=== PATIENT | male | born 1965 | race Caucasian/White ===

== ENCOUNTER 2019-12-04 08:40 | Observation (INO) | payer MEDICAID ==
[2019-12-04 09:14] LABS: ABSOLUTE BASOPHILS # (AUTO) 0.1 10^3/uL (0.0-0.2); ABSOLUTE EOSINOPHILS # (AUTO) 0.3 10^3/uL (0.0-0.6); ABSOLUTE LYMPHOCYTES (AUTO) 4.3 10^3/uL (0.5-4.7); ABSOLUTE MONOCYTES (AUTO) 1.3 10^3/uL (0.1-1.4); BASOPHILS % (AUTO) 0.5 % (0-2); EOSINOPHILS % (AUTO) 1.7 % (0-6); HEMATOCRIT 50.3 % (37.9-51.0); HEMOGLOBIN 16.9 g/dL (13.5-17.0); LYMPHOCYTES % (AUTO) 23.8 % (13-45); MEAN CORPUSCULAR HEMOGLOBIN 29.1 pg (27.0-33.4); MEAN CORPUSCULAR HGB CONC 33.7 g/dL (32.0-36.0); MEAN CORPUSCULAR VOLUME 86 fl (80-97); PLATELET COUNT 493 10^3/uL (150-450); RED BLOOD COUNT 5.82 10^6/uL (4.35-5.55); RED CELL DISTRIBUTION WIDTH 14.6 % (11.5-14.0); TOTAL CELLS COUNTED % (AUTO) 100 %; WHITE BLOOD COUNT 17.9 10^3/uL (4.0-10.5)
[2019-12-04 09:24] LABS: ALBUMIN 3.5 g/dL (3.5-5.0); ALKALINE PHOSPHATASE 110 U/L (38-126); ASPARTATE AMINO TRANSFERASE 28 U/L (17-59); BILIRUBIN,TOTAL 0.5 mg/dL (0.2-1.3); BLOOD UREA NITROGEN 10 mg/dL (7-20); CALCIUM 8.9 mg/dL (8.4-10.2); CARBON DIOXIDE 25 mmol/L (22-30); CHLORIDE 107 mmol/L (98-107); GLUCOSE 139 mg/dL (75-110); TOTAL PROTEIN 6.2 g/dL (6.3-8.2)
[2019-12-04 09:28] LABS: CREATINE KINASE 100 U/L (55-170); POTASSIUM 4.5 mmol/L (3.6-5.0)
[2019-12-04 09:33] LABS: ANION GAP 5 (5-19)
[2019-12-04 09:35] LABS: CREATINE KINASE MB 2.52 ng/mL (<4.55)
[2019-12-04] MEDS ORDERED: ASPIRIN 81 MG TABLET, CHEWABLE PO ONE (09:36)
[2019-12-04] MEDS ORDERED: NORMAL SALINE 1000 ML 1,000 ML IV ONE (09:37)
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
[2019-12-04 09:43] LABS: TROPONIN I < 0.012 ng/mL
[2019-12-04] MEDS ORDERED: NITROGLYCERIN 0.4 MG/TAB 25 TAB/BOTTLE SL PRN ×2 (09:50→11:41)
--- NOTE | 2019-12-04 09:56 | RADIOLOGY REPORT (SQ) ---
EXAM DESCRIPTION: CHEST 2 VIEWS IMAGES COMPLETED DATE/TIME: 12/04/2019 9:44 am REASON FOR STUDY: cp COMPARISON: None. EXAM PARAMETERS: NUMBER OF VIEWS: two views TECHNIQUE: Digital Frontal and Lateral radiographic views of the chest acquired. RADIATION DOSE: NA LIMITATIONS: none FINDINGS: LUNGS AND PLEURA: No opacities, masses or pneumothorax. No pleural effusion. MEDIASTINUM AND HILAR STRUCTURES: No masses or contour abnormalities. HEART AND VASCULAR STRUCTURES: Heart normal size. No evidence for failure. BONES: No acute findings. HARDWARE: None in the chest. OTHER: No other significant finding. IMPRESSION: NO ACUTE RADIOGRAPHIC FINDING IN THE CHEST. TECHNICAL DOCUMENTATION: JOB ID: [id number] 2010 [employer]- All Rights Reserved Reading location - IP/workstation name: [email or web address]
--- NOTE | 2019-12-04 09:58 | RADIOLOGY REPORT (SQ) ---
EXAM DESCRIPTION: FOOT LEFT COMPLETE IMAGES COMPLETED DATE/TIME: 12/04/2019 9:45 am REASON FOR STUDY: foot injury, L 1 MT, toe pain COMPARISON: None. NUMBER OF VIEWS: Three views. TECHNIQUE: AP, lateral and oblique radiographic images acquired of the left foot. LIMITATIONS: None. FINDINGS: MINERALIZATION: Normal. BONES: Acute mildly comminuted fracture, mid 3rd and distal tuft left great toe distal phalanx just d eep to the toenail. JOINTS: Mild joint space narrowing and bony spurring at the 1st metatarsophalangeal joint. SOFT TISSUES: Great toe soft tissue swelling. No foreign body. OTHER: No other significant finding. IMPRESSION: Acute fracture distal phalanx left great toe TECHNICAL DOCUMENTATION: JOB ID: [id number] 2010 [employer]- All Rights Reserved Reading location - IP/workstation name: [email or web address]
[2019-12-04] MEDS ORDERED: NITROGLYCERIN 2% OINTMENT 1 GM PACKET TP ONE (10:04)
[2019-12-04] MEDS ORDERED: HYDROCODONE/ACETAMINOPHEN 5-325 MG TABLET PO ONE (10:12)
[2019-12-04] MEDS ORDERED: ACETAMINOPHEN 325 MG TABLET PO PRN (11:16)
[2019-12-04] MEDS ORDERED: MAG HYDROX/AL HYDROX/SIMETH SUSP 30 ML UDCUP PO PRN (11:16)
[2019-12-04] MEDS ORDERED: IPRATROPIUM/ALBUTEROL 0.5-2.5 MG/3 ML AMPUL NEB PRN (11:16)
[2019-12-04] MEDS ORDERED: ONDANSETRON HCL INJ/PF 4 MG/2 ML SDV IV PRN (11:16)
[2019-12-04] MEDS ORDERED: HYDRALAZINE HCL INJ/PF 20 MG/1 ML SDV IV PRN (11:22)
[2019-12-04] MEDS ORDERED: NICOTINE 21 MG/24 HR PATCH.TD24 TD ONE (11:23)
[2019-12-04] MEDS ORDERED: PANTOPRAZOLE SODIUM 40 MG VIAL IV SCH (11:30)
[2019-12-04] MEDS ORDERED: LORAZEPAM INJ 2 MG/1 ML VIAL IV PRN (11:32)
--- NOTE | 2019-12-04 11:45 | PDOC H&P ---
History of Present Illness Admission Date/PCP: ELLY BANKS NP Patient complains of: chest pain History of Present Illness: NIKKI KELLY is a 54 year old male with a past medical history of hypertension, tobacco and alcohol dependence with continuous use, and peptic ulcer disease with prior exploratory laparotomy related to perforated ulcer disease (2 years ago at [facility]) who presented to the emergency department with a complaint of chest pain this morning associated with diaphoresis and generalized weakness. He has had multiple similar episodes in the recent past. He has not yet been evaluated by a provider. On arrival, he is noted to have hypertensive urgency with blood pressure 160/101. Noted to have leukocytosis (WBC 17.9), chemistry is normal, troponin normal, lipase normal. EKG shows normal sinus rhythm with right bundle branch block. Chest x-ray is benign. He is provided Nitropaste, which relieved his discomfort, and is referred to the hospitalist service for additional evaluation management. Past Medical History Cardiac Medical History: Reports: Hypertension Pulmonary Medical History: Reports: None EENT Medical History: Reports: None Neurological Medical History: Reports: None Endocrine Medical History: Reports: None Renal/ Medical History: Reports: None Malignancy Medical History: Reports: None GI Medical History: Reports: Gastroesophageal Reflux Disease, Peptic Ulcer Disease Musculoskeltal Medical History: Reports: None Psychiatric Medical History: Reports: Alcohol Dependency, Tobacco Dependency Traumatic Medical History: Reports: None Hematology: Reports: None Past Surgical History Past Surgical History: Reports: Other - Exploratory laparotomy r/t perforated gastric ulcer Social History Information Source: Patient Lives with: Friend Smoking Status: Current Every Day Smoker Cigarettes Packs Per Day: 1 Electronic Cigarette use?: Yes Frequency of Alcohol Use: Heavy Amount of Alcoholic Beverages Per Day: 6 beers Hx Recreational Drug Use: Yes Drugs: Marijuana Hx Prescription Drug Abuse: No - Advance Directive Resuscitation Status: Full Code Family History Family History: Reviewed & Not Pertinent Parental Family History Reviewed: Yes Children Family History Reviewed: Yes Sibling(s) Family History Reviewed.: Yes Medication/Allergy Allergies/Adverse Reactions: No Known Allergies Allergy (Verified 12/04/19 09:20) Review of Systems Constitutional: ABSENT: chills, fever(s), headache(s), weight gain, weight loss Eyes: ABSENT: visual disturbances Ears: ABSENT: hearing changes Cardiovascular: PRESENT: chest pain. ABSENT: dyspnea on exertion, edema, orthropnea, palpitations Respiratory: ABSENT: cough, hemoptysis Gastrointestinal: PRESENT: abdominal pain, nausea, vomiting. ABSENT: constipation, diarrhea, hematemesis, hematochezia Genitourinary: ABSENT: dysuria, hematuria Musculoskeletal: ABSENT: joint swelling Integumentary: ABSENT: rash, wounds Neurological: ABSENT: abnormal gait, abnormal speech, confusion, dizziness, focal weakness, syncope Psychiatric: ABSENT: anxiety, depression, homidical ideation, suicidal ideation Endocrine: ABSENT: cold intolerance, heat intolerance, polydipsia, polyuria Hematologic/Lymphatic: ABSENT: easy bleeding, easy bruising Physical Exam Vital Signs: Temp Pulse Resp BP Pulse Ox 98.0 F 20 160/101 H 98 12/04/19 08:53 12/04/19 11:01 12/04/19 11:00 12/04/19 11:01 Intake & Output 12/03/19 12/04/19 12/05/19 06:59 06:59 06:59 Intake Total 1000 Balance 1000 Weight 68.4 kg General appearance: PRESENT: no acute distress, cooperative, well-developed, w ell-nourished Head exam: PRESENT: atraumatic, normocephalic Eye exam: PRESENT: conjunctiva pink, EOMI, PERRLA. ABSENT: scleral icterus Mouth exam: PRESENT: moist, tongue midline Teeth exam: PRESENT: poor dentation - Tobacco staining to teeth and fingers Respiratory exam: PRESENT: clear to auscultation manny, symmetrical, unlabored. ABSENT: rales, rhonchi, wheezes Cardiovascular exam: PRESENT: RRR, +S1, +S2. ABSENT: diastolic murmur, rubs, systolic murmur Pulses: PRESENT: normal dorsalis pedis pul Vascular exam: PRESENT: normal capillary refill GI/Abdominal exam: PRESENT: normal bowel sounds, soft, tenderness. ABSENT: distended, guarding, mass, organolmegaly, rebound Rectal exam: PRESENT: deferred Extremities exam: PRESENT: full ROM. ABSENT: calf tenderness, clubbing, pedal edema Musculoskeletal exam: PRESENT: ambulatory Neurological exam: PRESENT: alert, awake, oriented to person, oriented to place, oriented to time, oriented to situation, CN II-XII grossly intact. ABSENT: motor sensory deficit Psychiatric exam: PRESENT: appropriate affect, normal mood. ABSENT: homicidal ideation, suicidal ideation Skin exam: PRESENT: dry, intact, warm. ABSENT: cyanosis, rash Results Laboratory Results: 12/04/19 08:25 12/04/19 08:25 12/04/19 12/04/19 12/04/19 08:25 08:25 08:25 WBC 17.9 H RBC 5.82 H Hgb 16.9 Hct 50.3 MCV 86 MCH 29.1 MCHC 33.7 RDW 14.6 H Plt Count 493 H Seg Neutrophils % 67.0 Sodium 137.3 Potassium 4.5 Chloride 107 Carbon Dioxide 25 Anion Gap 5 BUN 10 Creatinine 0.85 Est GFR ( Amer) > 60 Glucose 139 H Calcium 8.9 Total Bilirubin 0.5 AST 28 Alkaline Phosphatase 110 Total Protein 6.2 L Albumin 3.5 Lipase 113.7 12/04/19 12/04/19 08:25 08:25 Creatine Kinase 100 CK-MB (CK-2) 2.52 Troponin I < 0.012 Impressions: Chest X-Ray 12/04/19 09:24 IMPRESSION: NO ACUTE RADIOGRAPHIC FINDING IN THE CHEST. Foot X-Ray 12/04/19 09:38 IMPRESSION: Acute fracture distal phalanx left great toe Assessment and Plan - Diagnosis (1) Chest pain Qualifiers: Chest pain type: unspecified Qualified Code(s): R07.9 - Chest pain, unspecified Is this a current diagnosis for this admission?: Yes Plan: Patient presents with atypical chest pain symptoms. He reports several times a month, for the last few months, noting substernal chest discomfort described as, "deep pressure," that radiates to both arms. He is not yet been seen for this; today's episode was associated with generalized weakness and diaphoresis which prompted him to seek evaluation. EKG shows sinus rhythm with right bundle branch block. No ST segment changes. Initial troponin is negative. Chest x-ray benign. He is admitted to the medical floor on continuous cardiac telemetry. He started on daily aspirin and statin therapy. SL Nitro for chest pain. Consider trial of GI cocktail. Full dose protonix. Obtain CT ABD w/ oral contrast. Continue to trend troponins. (2) HTN (hypertension) Is this a current diagnosis for this admission?: Yes Plan: Patient is placed on lisinopril and amlodipine. IV hydralazine as needed for blood pressure control. Cardiac diet. (3) Leukocytosis Is this a current diagnosis for this admission?: Yes Plan: Unclear etiology. No clear infectious process. Pending CT of the abdomen. Follow-up CBC. (4) Tobacco dependence Is this a current diagnosis for this admission?: Yes Plan: Smoking cessation is encouraged. Nicotine replacement therapy is provided. (5) Alcohol dependence Qualifiers: Substance use status: uncomplicated Qualified Code(s): F10.20 - Alcohol dependence, uncomplicated Is this a current diagnosis for this admission?: Yes Plan: Cessation is encouraged. Monitor for withdrawal. Scheduled Valium. As needed ativan. Thiamin and folic acid supplementation. Check magnesium. - Time Time Spent with patient: 35 or more minutes Smoking Cessation Education: 3 to 10 minutes Medications reviewed and adjusted accordingly: Yes Anticipated discharge: Home Within: within 24 hours
[2019-12-04] MEDS: LISINOPRIL 10 MG TABLET PO SCH (11:51)
[2019-12-04] MEDS: DIAZEPAM 5 MG TABLET PO SCH ×3 (12:05→23:56)
--- NOTE | 2019-12-04 12:53 | RADIOLOGY REPORT (SQ) ---
EXAM DESCRIPTION: CT ABD/PELVIS ORAL ONLY IMAGES COMPLETED DATE/TIME: 12/04/2019 12:26 pm REASON FOR STUDY: abdominal pain, hx perforated ulcer COMPARISON: None. TECHNIQUE: CT scan of the abdomen and pelvis performed without intravenous contrast. Patient drank oral contrast Images reviewed with lung, soft tissue, and bone windows. Reconstructed coronal and sagittal MPR imag es reviewed. All images stored on PACS. All CT scanners at this facility use dose modulation, iterative reconstruction, and/or weight based d osing when appropriate to reduce radiation dose to as low as reasonably achievable (ALARA). [facility]: Dose Right [facility]: CareDose [facility]: Dose Right [facility]: Teradose 4D [facility]: LegitTrader RADIATION DOSE: CT Rad equipment meets quality standard of care and radiation dose reduction techniq ues were employed. CTDIvol: 6.0 mGy. DLP: 322 mGy-cm.mGy. LIMITATIONS: None. FINDINGS: LOWER CHEST: No significant findings. No nodules or infiltrates. NON-CONTRASTED LIVER, SPLEEN, ADRENALS: Evaluation limited by lack of IV contrast. No identified sign ificant masses. PANCREAS: No masses. No peripancreatic inflammatory changes. GALLBLADDER: No identified stones by CT criteria. No inflammatory changes to suggest cholecystitis. RIGHT KIDNEY AND URETER: No suspicious masses. Assessment limited by lack of IV contrast. No signif icant calcifications. No hydronephrosis or hydroureter. LEFT KIDNEY AND URETER: No suspicious masses. Assessment limited by lack of IV contrast. 3 mm left lower pole intrarenal nonobstructive stone No hydronephrosis or hydroureter. AORTA AND RETROPERITONEUM: No aneurysm. No retroperitoneal masses or adenopathy. BOWEL AND PERITONEAL CAVITY: Patient drank oral contrast before scanning. Stomach and duodenum are distended. No extravasation of contrast from the stomach. There is thickening of the pylorus/duoden um region. Ulcer in this area could not be excluded. No bowel obstruction. No obvious masses or inflammatory changes. No free fluid. No free intraperito molly air. Colonic diverticulosis without CT signs of acute diverticulitis. APPENDIX: Normal. PELVIS, BLADDER, AND ABDOMINAL WALL:No abnormal masses. No free fluid. Bladder normal. Patient has a n old supraumbilical midline incision with ventral hernia containing fat. BONES: No significant findings. OTHER: No other significant finding. IMPRESSION: Stomach and duodenum are distended with oral contrast. No extravasation of contrast. T hickening in the pylorus -duodenum region, ulcer in this area could not be excluded. Old fat containing supraumbilical midline ventral hernia COMMENT: Quality ID # [id number]: Final reports with documentation of one or more dose reduction techniques (e.g., Automated exposure control, adjustment of the mA and/or kV according to patient size, use of iterative reconstruction technique) TECHNICAL DOCUMENTATION: JOB ID: [id number] 2010 [employer]- All Rights Reserved Reading location - IP/workstation name: [email or web address]
[2019-12-04] MEDS ORDERED: DEXTROSE 40% GEL 15 GM TUBE PO PRN ×2 (13:00)
[2019-12-04] MEDS ORDERED: GLUCAGON,HUMAN RECOMB 1 MG INJ SUBCUT PRN (13:00)
[2019-12-04] MEDS ORDERED: DEXTROSE 50%-WATER 25 GM/50 ML DISP.SYRIN IV PRN ×2 (13:00)
--- NOTE | 2019-12-04 17:22 | EKG REPORT ---
SEVERITY:- ABNORMAL ECG - SINUS RHYTHM RBBB AND LAFB : Confirmed by: Syeda Sharif MD 04-Dec-2019 17:22:14
--- NOTE | 2019-12-04 17:22 | EKG REPORT ---
SEVERITY:- ABNORMAL ECG - SINUS RHYTHM RBBB AND LAFB : Confirmed by: Syeda Sharif MD 04-Dec-2019 17:22:08
[2019-12-04] MEDS: HEPARIN SOD (PORCINE) 5,000 UNIT/ML 1 ML VIAL SUBCUT SCH ×2 (17:31→21:16)
[2019-12-04] MEDS: PANTOPRAZOLE SODIUM 40 MG TABLET.DR PO SCH (17:31)
[2019-12-04] MEDS ORDERED: ATORVASTATIN CALCIUM 40 MG TABLET PO SCH (22:00)
[2019-12-04] MEDS ORDERED: AMLODIPINE BESYLATE 10 MG TABLET PO SCH (22:00)
[2019-12-05] MEDS: PANTOPRAZOLE SODIUM 40 MG TABLET.DR PO SCH ×2 (05:37→17:04)
[2019-12-05] MEDS: DIAZEPAM 5 MG TABLET PO SCH ×3 (06:34→17:04)
[2019-12-05] MEDS: HEPARIN SOD (PORCINE) 5,000 UNIT/ML 1 ML VIAL SUBCUT SCH ×2 (06:34→14:08)
[2019-12-05 06:55] LABS: HEMATOCRIT 46.2 % (37.9-51.0); HEMOGLOBIN 15.4 g/dL (13.5-17.0); MEAN CORPUSCULAR HGB CONC 33.3 g/dL (32.0-36.0); MEAN CORPUSCULAR VOLUME 87 fl (80-97); PLATELET COUNT 383 10^3/uL (150-450); RED CELL DISTRIBUTION WIDTH 14.3 % (11.5-14.0); WHITE BLOOD COUNT 10.5 10^3/uL (4.0-10.5)
[2019-12-05 07:21] LABS: BLOOD UREA NITROGEN 13 mg/dL (7-20); CALCIUM 8.7 mg/dL (8.4-10.2); CHOLESTEROL 149.64 mg/dL (0-200); GLUCOSE 92 mg/dL (75-110); POTASSIUM 4.4 mmol/L (3.6-5.0); TRIGLYCERIDES 185 mg/dL (<150)
[2019-12-05 07:28] LABS: CARBON DIOXIDE 28 mmol/L (22-30); CHLORIDE 111 mmol/L (98-107)
[2019-12-05 07:32] LABS: DIRECT LDL 85 mg/dL (<100)
[2019-12-05 07:37] LABS: ANION GAP 0 (5-19)
[2019-12-05] MEDS: LISINOPRIL 10 MG TABLET PO SCH (09:36)
[2019-12-05] MEDS ORDERED: THIAMINE HCL 100 MG TABLET PO SCH (10:00)
[2019-12-05] MEDS ORDERED: DOCUSATE SODIUM 100 MG CAPSULE PO SCH (10:00)
[2019-12-05] MEDS ORDERED: NICOTINE 21 MG/24 HR PATCH.TD24 TD SCH (10:00)
[2019-12-05] MEDS ORDERED: ASPIRIN 81 MG TABLET, CHEWABLE PO SCH (10:00)
[2019-12-05] MEDS ORDERED: FOLIC ACID 1 MG TABLET PO SCH (10:00)
--- NOTE | 2019-12-05 14:00 | DRAGON STRESS TEST REPORT ---
Pharmacological nuclear stress test Date: December 05, 2019 Referring physician: Gladys Clark NP Performing physician: Mikie Tao MD Indication: Chest pain Clinical history 54-year-old male with medical history significant for poorly controlled systemic hypertension and nicotine dependence-cigarettes who presented with epigastric discomfort. His cardiac biomarkers were mildly abnormal. We decided to proceed with pharmacological nuclear stress test for further re-stratification. Procedure The patient presented to the stress lab. Initially rest images were obtained according to standard protocol after the injection of 10.59 millicurie technetium 99m sestamibi. Subsequently the patient underwent pharmacological stress utilizing 0.4 mg of regadenoson intravenously. The patient's EKG and vital signs were monitored throughout the procedure. Subsequently patient was injected with 30.1 millicuries of technetium 99m sestamibi. After a period of rest, stress images were obtained according to standard protocol. EKG showed sinus rhythm with right bundle branch block at 93 beats per minute. The patient's stress EKG did not show any evidence for myocardial ischemia. There were no arrhythmias observed. Raw as well as processed rest and stress images were reviewed. There was mild to moderate gut uptake which did not interfere with the study. There is a small size, mild to moderately intense, predominantly fixed defect with mild reversibility in the inferior wall. There is normal contractility post-rest. The calculated ejection fraction is 56 %. The TID ratio is 1.21 Conclusion The stress EKG is negative for myocardial ischemia There is evidence of diaphragmatic attenuation on the study. There is mild ischemia in the inferior wall suggestive of RCA/left circumflex disease. There is normal contractility post-stress. The gated left ventricular ejection fraction is 56 %. Given above findings, medical therapy for coronary artery disease is recommended with aspirin, statin and beta-pawel prompt follow-up with distribution agent in the office. MTDD
[2019-12-05] MEDS ORDERED: REGADENOSON INJ 0.4 MG/5 ML DISP.SYRIN IV ONE (14:28)
--- NOTE | 2019-12-05 14:28 | PDOC CONSULTATION ---
Consultation Consult Date: 12/05/19 Provider Consulted: DESI MCLAUGHLIN Consult reason:: Abnormal troponin History of Present Illness Admission Date/PCP: 12/04/19 12:23 ELLY BANKS NP Patient complains of: Epigastric discomfort History of Present Illness: NIKKI KELLY is a 54 year old male 54-year-old male with the following active problems 1. Systemic hypertension 2. Nicotine dependence 3. Alcohol dependence 4. Peptic ulcer disease Patient presented with hypertensive urgency with epigastric discomfort. He has right bundle branch block on EKG. He had relief of epigastric discomfort with Nitropaste. His cardiac biomarkers are mildly abnormal. No prior history of coronary artery disease He continues to smoke cigarettes and uses alcohol. Past Medical History Cardiac Medical History: Reports: Hypertension Pulmonary Medical History: Reports: None EENT Medical History: Reports: None Neurological Medical History: Reports: None Endocrine Medical History: Reports: None Renal/ Medical History: Reports: None Malignancy Medical History: Reports: None GI Medical History: Reports: Gastroesophageal Reflux Disease, Peptic Ulcer Disease Musculoskeltal Medical History: Reports: None Psychiatric Medical History: Reports: Alcohol Dependency, Tobacco Dependency Denies: Depression Traumatic Medical History: Reports: None Hematology: Reports: None Past Surgical History Past Surgical History: Reports: Other - Exploratory laparotomy r/t perforated gastric ulcer Social History Lives with: Friend Smoking Status: Current Every Day Smoker Cigarettes Packs Per Day: 1 Electronic Cigarette use?: No Number of Years Smokin Frequency of Alcohol Use: Heavy Hx Recreational Drug Use: Yes Drugs: Marijuana Hx Prescription Drug Abuse: No - Advance Directive Resuscitation Status: Full Code Family History Family History: Reviewed & Not Pertinent Parental Family History Reviewed: Yes - No familial illnesses reported to mi Children Family History Reviewed: NA Sibling(s) Family History Reviewed.: NA Medication/Allergy Home Medications: No Home Medications 12/04/19 Allergies/Adverse Reactions: No Known Allergies Allergy (Verified 12/04/19 09:20) Physical Exam Vital Signs: Temp Pulse Resp BP Pulse Ox 98.0 F 79 17 115/75 100 12/04/19 23:30 12/05/19 07:00 12/04/19 23:30 12/04/19 23:30 12/04/19 23:30 Intake & Output 12/04/19 12/05/19 12/06/19 06:59 06:59 06:59 Intake Total 1000 Balance 1000 Weight 68 kg General appearance: PRESENT: no acute distress, cooperative, well-developed, well-nourished Head exam: PRESENT: atraumatic, normocephalic Eye exam: PRESENT: conjunctiva pink, EOMI Mouth exam: PRESENT: moist Respiratory exam: PRESENT: decreased breath sounds, rales, symmetrical, unlabored Cardiovascular exam: PRESENT: RRR, +S1, +S2 GI/Abdominal exam: PRESENT: soft, other - Healed laparotomy scar Rectal exam: PRESENT: deferred Neurological exam: PRESENT: alert, awake, oriented to person, oriented to place, oriented to time, oriented to situation Psychiatric exam: PRESENT: appropriate affect Skin exam: PRESENT: dry, intact, normal color Results Laboratory Results: 12/05/19 06:28 12/05/19 06:28 12/04/19 12/04/19 12/05/19 08:25 08:25 06:28 WBC 10.5 RBC 5.30 Hgb 15.4 Hct 46.2 MCV 87 MCH 29.0 MCHC 33.3 RDW 14.3 H Plt Count 383 Sodium Potassium Chloride Carbon Dioxide Anion Gap BUN Creatinine Est GFR ( Amer) Glucose Calcium Magnesium 2.1 Triglycerides Cholesterol LDL Cholesterol Direct VLDL Cholesterol HDL Cholesterol Lipase 113.7 TSH 12/05/19 12/05/19 06:28 06:28 WBC RBC Hgb Hct MCV MCH MCHC RDW Plt Count Sodium 139.0 Potassium 4.4 Chloride 111 H Carbon Dioxide 28 Anion Gap 0 L BUN 13 Creatinine 0.77 Est GFR ( Amer) > 60 Glucose 92 Calcium 8.7 Magnesium Triglycerides 185 H Cholesterol 149.64 LDL Cholesterol Direct 85 VLDL Cholesterol 37.0 H HDL Cholesterol 52 Lipase TSH 1.63 12/04/19 12/04/19 12/04/19 08:25 08:25 08:25 Creatine Kinase 100 CK-MB (CK-2) 2.52 Troponin I < 0.012 Cancelled NT-Pro-B Natriuret Pep 12/04/19 12/04/19 12/04/19 08:25 11:55 17:13 Creatine Kinase CK-MB (CK-2) Troponin I 0.208 0.478 NT-Pro-B Natriuret Pep 27 12/04/19 12/05/19 23:25 06:28 Creatine Kinase CK-MB (CK-2) Troponin I 0.323 0.179 NT-Pro-B Natriuret Pep EKG Comments: Twelve-lead EKG 12/04/2019. Independently reviewed by me. Sinus rhythm, 89 bpm, right bundle branch block, left anterior fascicular block Chest x-ray 12/04/2019 No acute radiographic finding CT scan abdomen pelvis 04/05/2020 Stomach and duodenum distended with oral contrast. No aortic aneurysm Distal phalanx of left great toe is fractured on x-ray 12/04/2019 Hemoglobin 16.9 White count 17.9 Cardiac troponin 0.208 0.478 0.323 0.179 Impressions: Chest X-Ray 12/04/19 09:24 IMPRESSION: NO ACUTE RADIOGRAPHIC FINDING IN THE CHEST. Foot X-Ray 12/04/19 09:38 IMPRESSION: Acute fracture distal phalanx left great toe Abdomen/Pelvis CT 12/04/19 11:16 IMPRESSION: Stomach and duodenum are distended with oral contrast. No extravasation of contrast. Thickening in the pylorus -duodenum region, ulcer in this area could not be excluded. Old fat containing supraumbilical midline ventral hernia Assessment & Plan - Diagnosis (1) Alcohol dependence Qualifiers: Substance use status: uncomplicated Qualified Code(s): F10.20 - Alcohol dependence, uncomplicated Is this a current diagnosis for this admission?: Yes Plan: Needs counseling to stop (2) Chest pain Qualifiers: Chest pain type: unspecified Qualified Code(s): R07.9 - Chest pain, unspecified Is this a current diagnosis for this admission?: Yes Plan: Cardiac biomarkers-troponin mildly elevated without a clear trend EKG with sinus rhythm and right bundle branch block and left anterior fascicular block without ischemic changes Pharmacological nuclear stress test was pursued in the hospital. The results indicate predominantly diaphragmatic attenuation with perhaps mild ischemia in the inferior wall suggestive of RCA/left circumflex disease which is probably mild. Would recommend a trial of medical therapy consisting of aspirin statin and beta-blockers and suggest close follow-up in the office. Recommend nicotine cessation (3) HTN (hypertension) Is this a current diagnosis for this admission?: Yes (4) Tobacco dependence Is this a current diagnosis for this admission?: Yes Plan: Significant respiratory findings. I counseled the patient regarding cigarette smoking cessation This can adversely affect his cardiovascular and overall health Total time spent was approximately 3 minutes - Notes Notes: Pharmacological nuclear stress test shows predominantly diaphragmatic attenuation with perhaps mild ischemia in the inferior wall. Would recommend medical therapy with aspirin statin and beta-pawel Discontinue nicotine use immediately Prompt follow-up with outpatient cardiology
--- NOTE | 2019-12-05 16:17 | PDOC DISCHARGE SUMMARY ---
Impression - Admit/DC Date/PCP Admission Date/Primary Care Provider: 12/04/19 12:23 ELLY BANKS NP Discharge Date: 12/05/19 - Discharge Diagnosis (1) Chest pain Is this a current diagnosis for this admission?: Yes (2) HTN (hypertension) Is this a current diagnosis for this admission?: Yes (3) Leukocytosis Is this a current diagnosis for this admission?: Yes (4) Tobacco dependence Is this a current diagnosis for this admission?: Yes (5) Alcohol dependence Is this a current diagnosis for this admission?: Yes - Additional Information Resuscitation Status: Full Code Discharge Diet: Cardiac Discharge Activity: Activity As Tolerated, Balance Activity w/Rest Referrals: DESI TAO MD [ACTIVE STAFF] - (Follow up within 2-4 weeks. PATIENT WILL MAKE HIS OWN FOLLOW UP APPOINTMENT.) ELLY BANKS NP [Primary Care Provider] - (Follow up within 1 week. PATIENT WILL MAKE HIS OWN FOLLOW UP APPOINTMENT.) Prescriptions: Aspirin [Aspirin 81 mg Chewable Tablet] 81 mg PO DAILY #90 tab.chew Carvedilol [Coreg] 1 tab PO Q12 #60 tab Folic Acid [Folvite 1 mg Tablet] 1 mg PO DAILY #90 tablet Atorvastatin Calcium [Lipitor 40 mg Tablet] 40 mg PO QHS #90 tablet Lisinopril [Prinivil 10 mg Tablet] 10 mg PO DAILY #30 tablet Pantoprazole Sodium [Protonix [address] Tablet] 40 mg PO BID@0600,1700 #60 tablet .dr Thiamine HCl [Thiamine 100 mg Tablet] 100 mg PO DAILY #90 tablet Home Medications: Acetaminophen [Tylenol 325 mg Tablet] 650 mg PO Q4HP PRN tablet 12/05/19 Aspirin [Aspirin 81 mg Chewable Tablet] 81 mg PO DAILY #90 tab.chew 12/05/19 Atorvastatin Calcium [Lipitor 40 mg Tablet] 40 mg PO QHS #90 tablet 12/05/19 Carvedilol [Coreg] 1 tab PO Q12 #60 tab 12/05/19 Folic Acid [Folvite 1 mg Tablet] 1 mg PO DAILY #90 tablet 12/05/19 Lisinopril [Prinivil 10 mg Tablet] 10 mg PO DAILY #30 tablet 12/05/19 Nicotine [Nicoderm 21 mg/24 Hr Transderm Patch] 1 each TD DAILY #0 patch.td24 12/05/19 Pantoprazole Sodium [Protonix [address] Tablet] 40 mg PO BID@0600,1700 #60 tablet. 12/05/19 Thiamine HCl [Thiamine 100 mg Tablet] 100 mg PO DAILY #90 tablet 12/05/19 History of Present Illiness History of Present Illness: NIKKI KELLY is a 54 year old male with a past medical history of hypertension, tobacco and alcohol dependence with continuous use, and peptic ulcer disease with prior exploratory laparotomy related to perforated ulcer disease (2 years ago at [facility]) who presented to the emergency department with a complaint of chest pain this morning associated with diaphoresis and generalized weakness. He has had multiple similar episodes in the recent past. He has not yet been evaluated by a provider. On arrival, he is noted to have hypertensive urgency with blood pressure 160/101. Noted to have leukocytosis (WBC 17.9), chemistry is normal, troponin normal, lipase normal. EKG shows normal sinus rhythm with right bundle branch block. Chest x-ray is benign. He is provided Nitropaste, which relieved his discomfort, and is referred to the hospitalist service for additional evaluation management. Hospital Course Hospital Course: Patient was admitted to the medical floor on continuous cardiac telemetry. Laboratory evaluation revealed normalized WBCs, downward trend in troponin, hyperlipidemia, normal TSH and A1c. He had no abnormal rhythms noted on telemetry and he remained chest pain-free throughout the remainder of his stay. Cardiology was consulted and conducted an nuclear stress test. Results indicated predominantly diaphragmatic attenuation and perhaps some mild ischemia to the inferior wall. Recommends medical management at this time with aspirin, statin, and beta-pawel therapy. Strong encouragement to discontinue smoking. Patient was discharged home in stable condition. He is advised to follow-up with his PCP within 1 week. Follow-up with Dr. Tao within 2 to 4 weeks, or sooner as needed. He is encouraged to discontinue smoking and to decrease his alcohol intake. He is instructed to return to the emergency department as needed for concerning symptoms. Physical Exam Vital Signs: Temp Pulse Resp BP Pulse Ox 98.0 F 87 17 154/90 H 100 12/05/19 15:38 12/05/19 15:38 12/05/19 15:38 12/05/19 15:38 12/05/19 15:38 Intake & Output 12/04/19 12/05/19 12/06/19 06:59 06:59 06:59 Intake Total 1000 Balance 1000 Weight 68 kg General appearance: PRESENT: no acute distress, cooperative, well-developed, well-nourished Head exam: PRESENT: atraumatic, normocephalic Eye exam: PRESENT: conjunctiva pink, EOMI, PERRLA. ABSENT: scleral icterus Mouth exam: PRESENT: moist, tongue midline Respiratory exam: PRESENT: clear to auscultation manny, symmetrical, unlabored. ABSENT: rales, rhonchi, wheezes Cardiovascular exam: PRESENT: RRR. ABSENT: diastolic murmur, rubs, systolic murmur Vascular exam: PRESENT: normal capillary refill Extremities exam: PRESENT: full ROM. ABSENT: calf tenderness, clubbing, pedal edema Musculoskeletal exam: PRESENT: ambulatory Neurological exam: PRESENT: alert, awake, oriented to person, oriented to place, oriented to time, oriented to situation, CN II-XII grossly intact. ABSENT: motor sensory deficit Psychiatric exam: PRESENT: appropriate affect, normal mood. ABSENT: homicidal ideation, suicidal ideation Skin exam: PRESENT: dry, intact, warm. ABSENT: cyanosis, rash Results Laboratory Results: WBC 10.5 10^3/uL (4.0-10.5) 12/05/19 06:28 RBC 5.30 10^6/uL (4.35-5.55) 12/05/19 06:28 Hgb 15.4 g/dL (13.5-17.0) 12/05/19 06:28 Hct 46.2 % (37.9-51.0) 12/05/19 06:28 MCV 87 fl (80-97) 12/05/19 06:28 MCH 29.0 pg (27.0-33.4) 12/05/19 06:28 MCHC 33.3 g/dL (32.0-36.0) 12/05/19 06:28 RDW 14.3 % (11.5-14.0) H 12/05/19 06:28 Plt Count 383 10^3/uL (150-450) 12/05/19 06:28 Lymph % (Auto) 23.8 % (13-45) 12/04/19 08:25 [place] % (Auto) 7.0 % (3-13) 12/04/19 08:25 Eos % (Auto) 1.7 % (0-6) 12/04/19 08:25 Baso % (Auto) 0.5 % (0-2) 12/04/19 08:25 Absolute Neuts (auto) 12.0 10^3/uL (1.7-8.2) H 12/04/19 08:25 Absolute Lymphs (auto) 4.3 10^3/uL (0.5-4.7) 12/04/19 08:25 Absolute Monos (auto) 1.3 10^3/uL (0.1-1.4) 12/04/19 08:25 Absolute Eos (auto) 0.3 10^3/uL (0.0-0.6) 12/04/19 08:25 Absolute Basos (auto) 0.1 10^3/uL (0.0-0.2) 12/04/19 08:25 Seg Neutrophils % 67.0 % (42-78) 12/04/19 08:25 Sodium 139.0 mmol/L (137-145) 12/05/19 06:28 Potassium 4.4 mmol/L (3.6-5.0) 12/05/19 06:28 Chloride 111 mmol/L (98-107) H 12/05/19 06:28 Carbon Dioxide 28 mmol/L (22-30) 12/05/19 06:28 Anion Gap 0 (5-19) L 12/05/19 06:28 BUN 13 mg/dL (7-20) 12/05/19 06:28 Creatinine 0.77 mg/dL (0.52-1.25) 12/05/19 06:28 Est GFR ( Amer) > 60 (>60) 12/05/19 06:28 Est GFR (MDRD) Non-Af > 60 (>60) 12/05/19 06:28 Glucose 92 mg/dL (75-110) 12/05/19 06:28 Hemoglobin A1c % 5.5 % (4.7-6.0) 12/05/19 06:28 Calcium 8.7 mg/dL (8.4-10.2) 12/05/19 06:28 Magnesium 2.1 mg/dL (1.6-2.3) 12/04/19 08:25 Total Bilirubin 0.5 mg/dL (0.2-1.3) 12/04/19 08:25 Direct Bilirubin 0.0 mg/dL (0.0-0.4) 12/04/19 08:25 Neonat Total Bilirubin Not Reportable 12/04/19 08:25 Neonat Direct Bilirubin Not Reportable 12/04/19 08:25 Neonat Indirect Bili Not Reportable 12/04/19 08:25 AST 28 U/L (17-59) 12/04/19 08:25 ALT 18 U/L (<50) 12/04/19 08:25 Alkaline Phosphatase 110 U/L (38-126) 12/04/19 08:25 Creatine Kinase 100 U/L (55-170) 12/04/19 08:25 CK-MB (CK-2) 2.52 ng/mL (<4.55) 12/04/19 08:25 Troponin I 0.179 ng/mL 12/05/19 06:28 NT-Pro-B Natriuret Pep 27 pg/mL (<125) 12/04/19 08:25 Total Protein 6.2 g/dL (6.3-8.2) L 12/04/19 08:25 Albumin 3.5 g/dL (3.5-5.0) 12/04/19 08:25 Triglycerides 185 mg/dL (<150) H 12/05/19 06:28 Cholesterol 149.64 mg/dL (0-200) 12/05/19 06:28 LDL Cholesterol Direct 85 mg/dL (<100) 12/05/19 06:28 VLDL Cholesterol 37.0 mg/dL (10-31) H 12/05/19 06:28 HDL Cholesterol 52 mg/dL (>40) 12/05/19 06:28 Lipase 113.7 U/L (23-300) 12/04/19 08:25 TSH 1.63 uIU/mL (0.47-4.68) 12/05/19 06:28 12/04/19 12/04/19 12/04/19 08:25 08:25 08:25 CK-MB (CK-2) 2.52 Troponin I < 0.012 Cancelled NT-Pro-B Natriuret Pep 27 12/04/19 12/04/19 12/04/19 11:55 17:13 23:25 CK-MB (CK-2) Troponin I 0.208 0.478 0.323 NT-Pro-B Natriuret Pep 12/05/19 06:28 CK-MB (CK-2) Troponin I 0.179 NT-Pro-B Natriuret Pep Impressions: Chest X-Ray 12/04/19 09:24 IMPRESSION: NO ACUTE RADIOGRAPHIC FINDING IN THE CHEST. Foot X-Ray 12/04/19 09:38 IMPRESSION: Acute fracture distal phalanx left great toe Abdomen/Pelvis CT 12/04/19 11:16 IMPRESSION: Stomach and duodenum are distended with oral contrast. No extravasation of contrast. Thickening in the pylorus -duodenum region, ulcer in this area could not be excluded. Old fat containing supraumbilical midline ventral hernia Stroke Is this a Stroke Patient?: No Acute Heart Failure - Is this a Heart Failure Patient?: No
[2019-12-05 17:06] VITALS: BP 147/89
== END 2019-12-05 17:20 | disposition home or self-care (01) ==
LOC: ER 08:40 → EH 12:23 → 4S 14:17
PROVIDERS: ADMIT Internal Medicine; ATTEND Registered Nurse
DX: R07.89 Other chest pain (principal); I16.0 Hypertensive urgency; D72.829 Elevated white blood cell count, unspecified; F17.210 Nicotine dependence, cigarettes, uncomplicated; F10.20 Alcohol dependence, uncomplicated; I45.10 Unspecified right bundle-branch block; E78.5 Hyperlipidemia, unspecified; S92.422A Displaced fracture of distal phalanx of left great toe, initial encounter for closed fracture; V49.88XA Car occupant (driver) (passenger) injured in other specified transport accidents, initial encounter; Y92.410 Unspecified street and highway as the place of occurrence of the external cause; R61 Generalized hyperhidrosis; R11.2 Nausea with vomiting, unspecified; K43.9 Ventral hernia without obstruction or gangrene; R53.1 Weakness; I45.2 Bifascicular block; R79.89 Other specified abnormal findings of blood chemistry; K27.9 Peptic ulcer, site unspecified, unspecified as acute or chronic, without hemorrhage or perforation; Z79.899 Other long term (current) drug therapy
CPT/HCPCS: 93005; 99285; 96360; 36415 ×2; 82553; 82550; 83690; 83735; 84443; 85025; 85027; 80048; 80053; 84484 ×2; 83036; 80061; 83880; 93017; 71046; 73630; 78452; 74176; 93010; 94640; 99406; A9500; J2785; J3490 ×15; J1644 ×2; J7030; Q9969